=== PATIENT | female | born 1965 | race Hispanic/Latino ===

== ENCOUNTER 2021-05-20 11:29 | Outpatient (CLI) | payer BC ==
--- NOTE | 2021-05-21 17:43 | Mammography Report ---
DIGITAL SCREENING MAMMOGRAM WITH CAD, 05/20/2021 CLINICAL INFORMATION / INDICATION: Routine screening mammography. TECHNIQUE: Digital bilateral 2D mammography was obtained in the craniocaudal and mediolateral obliqu e projections. This examination was interpreted with the benefit of Computer-Aided Detection analysis . COMPARISON: Prior mammogram 03/26/2009 FINDINGS: Breast Density: The breasts are heterogeneously dense, which may obscure small masses. No dominant mass, suspicious calcifications, or architectural distortion in either breast. There has been no significant change compared with the prior examination. IMPRESSION: No mammographic evidence of malignancy. Follow up recommendation: Routine yearly BI-RADS Category 1: NEGATIVE A "normal" or negative report should not discourage follow up or biopsy of a clinically significant f inding. A written summary of these findings will be mailed to the patient. The patient will be entered into a mammography reporting system which will generate a reminder letter for the patient's next appointmen t at the appropriate interval. The [employer] recommends yearly mammograms starting at age 40 and continuing as l emily as a woman is in good health. Breast MRI is recommended for women with an approximate 20-25% or greater lifetime risk of breast cancer, including women with a strong family history of breast or ova zan cancer or who have been treated for Hodgkin's disease. Signer Name: Nely Chaves MD Signed: 05/21/2021 5:39 PM Workstation Name: [id number]
== END 2021-05-20 11:30 | disposition home or self-care (01) ==
LOC: SPVWC 11:29
PROVIDERS: ATTEND Internal Medicine
DX: Z12.31 Encounter for screening mammogram for malignant neoplasm of breast (principal)
CPT/HCPCS: 77067